=== PATIENT | female | born 1955 ===

== ENCOUNTER 2017-04-27 22:35 | Emergency (ER) | payer MEDICAID ==
[2017-04-27 22:47] VITALS: BP 129/82; PULSE 73; RESP 20; TEMP 97.5; O2SAT 99
--- NOTE | 2017-04-27 23:58 | C.PDOC ---
History Of Present Illness A 61 y/o F with a Hx of arthritis, c/o intermittent pain to the left shoulder for the past 2 weeks. Pain is worse with movement to the area. Pt notes she takes "natural medications for the pain", but reports no relief. Denies trauma, weakness, numbness, chest pain, SOB, or any other complaints. Time Seen by Provider: 04/27/17 22:50 Chief Complaint (Nursing): Upper Extremity Problem/Injury History Per: Patient History/Exam Limitations: no limitations Onset/Duration Of Symptoms: Days, Intermittent Episodes Current Symptoms Are (Timing): Still Present Severity: Mild Exacerbating Factor(s): Movement Recent travel outside of the [place]: No Additional History Per: Patient Past Medical History Reviewed: Historical Data, Nursing Documentation, Vital Signs Vital Signs: Last Vital Signs Temp 97.5 F L 04/27/17 22:43 Pulse 73 04/27/17 22:43 Resp 20 04/27/17 22:43 BP 129/82 04/27/17 22:43 Pulse Ox 99 04/28/17 00:06 - Medical History PMH: Arthritis Family History: States: Unknown Family Hx - Social History Hx Alcohol Use: No Hx Substance Use: No Review Of Systems Except As Marked, All Systems Reviewed And Found Negative. Constitutional: Negative for: Other (trauma) Cardiovascular: Negative for: Chest Pain Respiratory: Negative for: Shortness of Breath Musculoskeletal: Positive for: Shoulder Pain (Left shoulder) Neurological: Negative for: Weakness, Numbness Physical Exam - Physical Exam Appears: Non-toxic, No Acute Distress Skin: Warm, Dry Head: Atraumatic, Normacephalic Extremity: Normal ROM (But causes pain), No Tenderness, Capillary Refill (<2secs ), No Deformity, No Swelling Pulses: Left Radial: Normal, Right Radial: Normal Neurological/Psych: Oriented x3, Normal Motor, Normal Sensation, Other (No focal deficit) ED Course And Treatment ECG: Interpreted By Me, Viewed By Me ECG Rhythm: Sinus Rhythm ECG Interpretation: Normal Rate From EC O2 Sat by Pulse Oximetry: 99 (RA) Pulse Ox Interpretation: Normal Progress Note: Impression: A 61 y/o F c/o intermittent pain to the left shoulder for the past 2 weeks. Plans: Motrin, XRAY left shoulder, EKG, Reassess. XRAY left shoulder: NO fractures or dislocation. Pt is comfortable and feels better. Pt instructed to follow up and understands to return if symptoms are worse. Disposition Counseled Patient/Family Regarding: Diagnosis, Need For Followup, Rx Given - Disposition Referrals: [facility] at [facility] [Outside] Disposition: HOME/ ROUTINE Disposition Time: 23:55 Condition: STABLE Additional Instructions: Take meds as directed Follow up with PMD Return to ER if worse Prescriptions: Ibuprofen [Motrin] 600 mg PO Q6H #30 tab Instructions: Arthralgia (ED) Print Language: INDONESIAN - Clinical Impression Clinical Impression: Arthralgia of shoulder region, left - Scribe Statement The provider has reviewed the documentation as recorded by the Scribe Carol campos All medical record entries made by the Viriibchao were at my direction and personally dictated by me. I have reviewed the chart and agree that the record accurately reflects my personal performance of the history, physical exam, medical decision making, and the department course for this patient. I have also personally directed, reviewed, and agree with the discharge instructions and disposition.
--- NOTE | 2017-04-28 10:19 | RAD ---
PROCEDURE: Radiographs of the Left Shoulder HISTORY: r/o fx COMPARISON: No prior. FINDINGS: BONES: Normal. No fracture. JOINTS: Normal. Glenohumeral and acromioclavicular joints preserved. No osteoarthritis. SOFT TISSUES: Normal. OTHER FINDINGS: None. IMPRESSION: Normal radiographs of the left shoulder.
--- NOTE | 2017-04-30 12:43 | CARD ---
APPROVED REPORT EKG Measurement Heart [id number] <Conclusion> Normal sinus rhythm Normal ECG
== END 2017-04-28 00:13 | disposition home or self-care (01) ==
LOC: C.ER 22:35
DX: M25.512 Pain in left shoulder (principal)

== ENCOUNTER 2018-10-24 12:43 | Emergency (ER) | payer MEDICAID, OTHER ==
[2018-10-24 12:55] VITALS: BP 129/85; PULSE 79; RESP 16; TEMP 98.6; O2SAT 98
[2018-10-24] MEDS ORDERED: Albuterol 0.083% Inhal Sol (2.5 mg/3 mL) UD INH STA (13:09)
--- NOTE | 2018-10-24 13:10 | C.PDOC ---
History Of Present Illness 63 year old female presents to the ED for evaluation of cough, and pleuritic chest tightness for 3 days. Patient denies fever, smoker or history of asthma. COUGH, PLEURITIC CHEST TIGHTNESS X 3 DAYS. NO FEVER, SMOKER, ASTHMA EXAM NARD HEENT NEG LUNGS OCC RHONCHI, SPEAKING FULL SENTENCES REMAINDER NEG Time Seen by Provider: 10/24/18 13:00 Chief Complaint (Nursing): Cough, Cold, Congestion History Per: Patient History/Exam Limitations: no limitations Onset/Duration Of Symptoms: Days (3) Associated Symptoms: Cough. denies: Fever Past Medical History Reviewed: Historical Data, Nursing Documentation, Vital Signs Vital Signs: Last Vital Signs Temp 98.6 F 10/24/18 12:51 Pulse 79 10/24/18 12:51 Resp 16 10/24/18 12:51 BP 129/85 10/24/18 12:51 Pulse Ox 98 10/24/18 12:51 - Medical History PMH: Arthritis Surgical History: No Surg Hx Family History: States: Unknown Family Hx - Social History Hx Alcohol Use: No Hx Substance Use: No Review Of Systems Constitutional: Negative for: Fever Cardiovascular: Positive for: Other (chest tightness ) Respiratory: Positive for: Cough Physical Exam - Physical Exam Appears: Non-toxic, No Acute Distress Skin: Normal Color, Warm, Dry Head: Atraumatic, Normacephalic Eye(s): bilateral: Normal Inspection Ear(s): Bilateral: Normal Nose: Normal, No Discharge Oral Mucosa: Moist Throat: Normal, No Erythema, No Exudate Neck: Supple Chest: Symmetrical, No Deformity, No Tenderness Cardiovascular: Rhythm Regular, No Murmur Respiratory: No Rales, Rhonchi (occasional ), No Wheezing, Other (speaking in full sentences ) Extremity: Normal ROM, Capillary Refill (less than 2 seconds ) Neurological/Psych: Oriented x3, Normal Speech, Normal Cognition ED Course And Treatment O2 Sat by Pulse Oximetry: 98 Progress Note: Motrin PO, Tessalon Perles PO and Albuterol INH given. Disposition Counseled Patient/Family Regarding: Diagnosis, Need For Followup, Rx Given - Disposition Referrals: [facility] [Outside] [facility] at [facility] [Outside] Disposition: HOME/ ROUTINE Disposition Time: 13:52 Condition: IMPROVED Prescriptions: Benzonatate [Tessalon Perles] 200 mg PO TID PRN #15 sgl PRN Reason: Cough Ibuprofen [Motrin] 600 mg PO Q6 #30 tab Instructions: Acute Bronchitis, Adult (DC) Forms: [employer] Aut[employer] Connect (Mozambican) Print Language: CONGOLESE - Clinical Impression Clinical Impression: Bronchitis - Scribe Statement The provider has reviewed the documentation as recorded by the Scribe (Carolina Carreon) Provider Attestation: All medical record entries made by the Scribe were at my direction and personally dictated by me. I have reviewed the chart and agree that the record accurately reflects my personal performance of the history, physical exam, medical decision making, and the department course for this patient. I have also personally directed, reviewed, and agree with the discharge instructions and disposition.
[2018-10-24] MEDS ORDERED: Albuterol 0.083% Inhal Sol (2.5 mg/3 mL) UD ONE ×2 (13:15→13:31)
== END 2018-10-24 14:18 | disposition home or self-care (01) ==
LOC: C.ER 12:43
DX: J40 Bronchitis, not specified as acute or chronic (principal)